=== PATIENT | male | born 2005 | race Caucasian/White ===

== ENCOUNTER 2024-08-04 12:28 | Emergency (ER) | payer OTHER, SELFPAY ==
[2024-08-04 13:26] VITALS: BP 131/70; PULSE 85; RESP 16; TEMP 36.9; O2SAT 98
--- NOTE | 2024-08-04 13:36 | ED.ANIMALBIT ---
HPI - Animal Bite General Chief Complaint: Animal Bite Stated Complaint: CAT BITE R INDEX FINGER Time Seen by Provider: 08/04/24 13:30 Source: patient and family Mode of arrival: ambulatory Limitations: no limitations History of Present Illness HPI narrative: Bk is a 18-year-old male patient presenting to the clinic today with complaints of a cat bite to his right index finger. He reports they were trying to clip the cat toenails when the cat bit his finger. This is a family cat. Has 2 puncture wounds to the right index finger. No redness or swelling noted at this time. No drainage. Did wash his hand after the bite Related Data Home Medications ?Medication ?Instructions ?Recorded ?Confirmed ?Last Taken ?Type atomoxetine 80 mg capsule mg PO 08/04/24 Unknown History escitalopram oxalate 10 mg tablet mg 08/04/24 Unknown History Allergies Allergy/AdvReac Type Severity Reaction Status Date / Time No Known Allergies Allergy Mild Verified 02/11/08 00:17 Review of Systems Review of Systems: Pertinent positives per HPI. Patient denies any fever, chills, rash, headache, visual changes, dizziness, cough, shortness of breath, chest pain, palpitations, nausea, vomiting, diarrhea, constipation, abdominal pain, or any urinary issues. PMFSH Comments At the time of my signature, I reviewed and agree with the nursing past medical, surgical, social, and family history. There is no relevant family history pertinent to the patient complaint. Exam Narrative: General: Well-developed, well nourished, in no apparent distress Head: Normocephalic, atraumatic. Cardio: Regular rate and rhythm, s1 and s2 normal, no murmur appreciated. Resp: Clear to auscultation bilaterally, no rhonchi, rales, wheezing or rubs. Integumentary: [place], warm, and dry, 2 puncture wounds to the right index finger-no redness, swelling, or drainage Course Course Emergency Course: Portions of this record may have been created with voice recognition software. Level of Care: Express Care Visit Vital Signs Vital signs: Vital Signs Temperature 36.9 C 08/04/24 13:26 Pulse Rate 85 08/04/24 13:26 Respiratory Rate 16 08/04/24 13:26 Blood Pressure 131/70 08/04/24 13:26 Pulse Oximetry 98 08/04/24 13:26 Temperature 36.9 C 08/04/24 13:26 Pulse Rate 85 08/04/24 13:26 Respiratory Rate 16 08/04/24 13:26 Blood Pressure 131/70 08/04/24 13:26 Pulse Oximetry 98 08/04/24 13:26 Vital signs reviewed MDM - Animal Bite MDM Narrative Medical decision making narrative: At the time of visit patient is resting comfortably on the exam table. Patient appears to be nontoxic. Plan: Patient has cat bite. Will treat prophylactic-Augmentin. Supportive measures were discussed with the patient and they voiced understanding discharge instructions and agrees to treatment plan. Return precautions reviewed Differential Diagnosis Differential diagnosis: Likely bite by animal and cat bite Discharge Plan Discharge Clinical Impression: Puncture wound Cat bite Qualifiers: Encounter type: initial encounter Qualified Code(s): W55.01XA - Bitten by cat, initial encounter Patient Disposition: Home, Self-Care Condition: Stable Instructions: Antibiotic Form, Animal Bite (ED), Puncture Wound (ED) Additional Instructions: Keep wound clean and dry Wash area daily with soap and water May apply triple antibiotic ointment to the wounds twice daily times 48 hours then leave open to air Take Augmentin as prescribed Watch for signs and symptoms of infection- redness, streaking, swelling, purulent discharge, or increase in pain. Follow up with your PCP in 2-3 days for wound check Patient Language: Portuguese Prescriptions: New amoxicillin-pot clavulanate 875-125 mg tablet 1 tablet PO Q12H 5 Days Qty: 10 0RF No Action escitalopram oxalate 10 mg tablet atomoxetine 80 mg capsule PO Follow-up/Referrals: Briseida Banegas MD [Primary Care Provider] - Time of Disposition: 13:37 Quality NIHSS Nursing Documentation ED NIHSS nursing documentation: reviewed/agree
== END 2024-08-04 13:43 | disposition home or self-care (01) ==
PROVIDERS: Emergency Provider Nurse Practitioner Family; PCP Pediatrics
DX: S61.230A Puncture wound without foreign body of right index finger without damage to nail, initial encounter (principal); W55.01XA Bitten by cat, initial encounter
CPT/HCPCS: 99203; G0463

== ENCOUNTER 2025-06-21 23:33 | Emergency (ER) | payer OTHER, SELFPAY ==
--- NOTE | ~2025-06-21 | XR_ITS ---
Examination: XR chest 1V portable Clinical History: flu A+ at home Comparison: None Technique: Portable AP Findings: Heart size normal. Lungs clear. No acute bony abnormality. IMPRESSION: 1. No acute cardiopulmonary findings given portable technique. Reviewed, dictated and finalized at location [employer]
--- OUTSIDE RECORDS SUMMARY | 2025-06-21 23:35 | XMS_ITS | Clinical Summary ---
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 Gender Identity Not on file Sexual Orientation Not on file Last Filed Vital Signs Vital Sign Reading Time Taken Comments Blood Pressure - - Pulse - - Temperature - - Respiratory Rate - - Oxygen Saturation - - Inhaled Oxygen Concentration - - Weight 34.2 kg (75 lb 8.1 oz) 04/12/2013 3:42 PM CDT Height 148.6 cm (4' 10.5) 04/12/2013 3:42 PM CD T Body Mass Index 15.51 04/12/2013 3:42 PM CDT Plan of Treatment Not on file Insurance [employer] Address: [facility] [id number] [place] [address] Care Teams Land Clearer Relationship Specialty Start Date End Date Briseida Banegas MD [address] [place] [address] PCP - General Pediatrics 12/24/21
[2025-06-21 23:37] VITALS: BP 121/107; PULSE 118; RESP 18; TEMP 37.2; O2SAT 100
[2025-06-22 03:16] LABS: Hematocrit 44.5 % (42.0-52.0); Hemoglobin 15.8 g/dL (14.0-18.0); Immature Granulocyte Percent A 0.2 % (0-0.5); Lymphocytes Absolute Auto 0.89 K/mm3 (0.9-3.2); Mean Corpuscular HGB Conc 35.5 g/dl (32-36); Mean Corpuscular Hemoglobin 30.7 pg (26-34); Mean Corpuscular Volume 86.6 fl (80-100); Nucleated Red Blood Cells Absolute Auto 0.000 K/mm3 (0.0-0.012); Nucleated Red Blood Cells Perc 0.0 % (0.0-0.2); Platelet Count Result 196 k/mm3 (150-375); Red Blood Count 5.14 M/mm3 (4.6-6.20); White Blood Count 11.6 K/mm3 (4.5-10.0)
--- NOTE | 2025-06-22 03:16 | ED_ITS ---
HPI - URI/Sore Throat General Chief Complaint: Upper Respiratory Infection Stated Complaint: flu Time Seen by Provider: 06/22/25 02:40 Source: patient and family (mother) Mode of arrival: ambulatory Limitations: no limitations History of Present Illness HPI Narrative: Patient presents with report of UTI symptoms. Tested positive for Influenza a on a home test. 100.9F temp at home. Has been using ibuprofen and Tylenol at home, last dose at 6:30. Takes Straterra and Lexapro. Has had cough productive of phlegm with fevers. Started having shortness of breath and wheeze. no sore throat. Hard to sleep. Sister also has flu. Smokes marijuana but denies cigarettes or vaping. Had pediatric asthma but outgrew it, no other underlying respiratory issues. PCP Sue Contreras Related Data Home Medications ?Medication ?Instructions ?Recorded ?Confirmed ?Last Taken ?Type atomoxetine 80 mg capsule mg PO 08/04/24 Unknown Hist ory escitalopram oxalate 10 mg tablet mg 08/04/24 Unknown History Allergies Allergy/AdvReac Type Severity Reaction Status Date / Time No Known Allergies Allergy Mild Verified 06/21/25 23:39 [facility] Past Medical History Medical History History of asthma pediatric; outgrew Family History Family History Sibling Flu May 2025 Social History Social History Smoking status: Never smoker Additional smoking assessment comments: denies cigarettes or vaping Substance use type: marijuana Other substance usage details: smokes Exam 2 Narrative: GENERAL: Well-appearing, well-nourished, and in no acute distress. HEAD: Normocephalic, atraumatic. EYES: Non injected, non icteric ENT: Nares clear, no epistaxis. Gross auditory acuity intact. NECK: Supple. No meningismus. CHEST: Speaking in full sentences. No respiratory distress. Lungs with bilateral wheezes. No accessory muscle usage. HEART: Tachycardic rate and rhythm. . ABDOMEN: Soft, nondistended. No rigidity or guarding. Not peritoneal EXTREMITIES: Normal range of motion. SKIN: Warm, dry, no rash. NEURO: No focal deficits. Alert and oriented. Answering questions. Following commands. Normal speech without aphasia or dysarthria. Ambulates with steady gait PSYCH: Normal mood and affect. Course Vital Signs Vital signs: Vital Signs Temperature 98.9 F 06/21/25 23:37 Pulse Rate 118 H 06/21/25 23:37 Respiratory Rate 18 06/21/25 23:37 Blood Pressure 121/107 H 06/21/25 23:37 Pulse Oximetry 100 06/21/25 23:37 Oxygen Delivery Room Air 06/21/25 23:37 Temperature 98.9 F 06/21/25 23:37 Pulse Rate 116 H 06/22/25 03:43 Respiratory Rate 20 06/22/25 03:43 Blood Pressure 130/74 06/22/25 03:31 Pulse Oximetry 96 06/22/25 03:31 Oxygen Delivery Room Air 06/21/25 23:37 [facility] Narrative Medical decision making narrative: Patient presents with report of tesing positive for influenza a at home today. has had fever, cough. Started to feel short of breath with wheezes which made it difficult to sleep so presents to the ED. Had pediatric asthma that he outgrew. Otherwise no underlying respiratory issues. Smokes marijuana but no cigarettes/does not vape. In the emergency department he is afebrile with vital signs notable for hypertension particularly with the elevated diastolic blood pressure. He is also tachycardic at 118. Wheezes on exam. Nebulizer albuterol treatment ordered and will discharge with Rx for albuterol inhaler. Mild hyponatremia, no prior for comparison. Mild leukocytosis. HR and BP had normalized on repeat although HR elevated again, suspect possible contribution of albuterol. Discussed risks/benefits of Tamiflu. Shared decision making. Patient and mother elect to defer taking; no rx to be given. Advised PCP follow up and given return precautions. Discussed rest and supportive care. Differential Diagnosis Differential Diagnosis: acute viral syndrome/flu a; pneumonia Lab Data [facility] Lab Attestation statement: I personally reviewed the patient's lab results. 06/22/25 03:10 06/22/25 03:10 Labs: Lab Results 06/22/25 Range/Units 03:10 WBC 11.6 H (4.5-10.0) K/mm3 RBC 5.14 (4.6-6.20) M/mm3 Hgb 15.8 (14.0-18.0) g/dL Hct 44.5 (42.0-52.0) % MCV 86.6 (80-100) fl MCH 30.7 (26-34) pg MCHC 35.5 (32-36) g/dl RDW 11.9 (11.5-14.5) % Plt Count 196 (150-375) k/mm3 MPV 9.4 (7.4-10.4) fl Immature Gran % (Auto) 0.2 (0-0.5) % Neut % (Auto) 78.5 H (45.5-73.1) % Lymph % (Auto) 7.7 L (18.3-44.2) % [place] % (Auto) 12.0 H (2.6-8.5) % Eos % (Auto) 1.0 (0-4.4) % Baso % (Auto) 0.6 (0.2-1.2) % Lymph # (Auto) 0.89 L (0.9-3.2) K/mm3 [place] # (Auto) 1.4 H (0.1-0.6) K/mm3 Eos # (Auto) 0.1 (0-0.3) K/mm3 Baso # (Auto) 0.1 (0.0-0.1) K/mm3 Abs Immat Gran (auto) 0.02 (0.00-0.031) K/mm3 Absolute Neuts (auto) 9.1 H (1.3-6.7) K/mm3 Absolute Nucleated RBC 0.000 (0.0-0.012) K/mm3 Nucleated RBC % 0.0 (0.0-0.2) % Sodium 135 L (137-145) mmol/L Potassium 4.1 (3.4-5.0) mmol/L Chloride 103 (98-107) mmol/L Carbon Dioxide 23 (22-30) mmol/L Anion Gap 9 (4-12) mmol/L BUN 16 (9-20) mg/dL Creatinine 0.85 (0.7-1.3) mg/dL Estim Creat Clear Calc 144 ml/min Estimated GFR > 60 (59 - ) Glucose 109 (65-110) mg/dL Calcium 9.7 (8.4-10.2) mg/dL Imaging Data Attestation: I personally reviewed and interpreted this imaging study as follows: My impression: Borderline hyperinflated lungs Radiologist's impression: ITS Impressions Chest X-Ray 06/22/25 06:22 IMPRESSION: 1. No acute cardiopulmonary findings given portable technique. Discharge Plan Discharge Clinical Impression: Influenza A, Hyponatremia, Wheezes, Leukocytosis Patient Disposition: Home Condition: Stable Instructions: Antibiotic Form, Hyponatremia (ED), Influenza (DC), Leukocytosis (ED), Wheezing (ED) Additional Instructions: Acetaminophen/Tylenol (maximum 4000 mg per day) is safe to take with NSAIDs (ibuprofen/Motrin) for pain relief/fever. The Tessalon Perles may help the cough and you are being prescribed an albuterol inhaler for the wheezes you are experiencing. Follow-up with your primary care physician. Return to the emergency department with any new worsening unmanaged symptoms. Rest and maintain your hydration. Patient Language: [place] Prescriptions: New benzonatate 100 mg capsule 100 mg PO BID PRN (Reason: cough) Qty: 20 0RF albuterol sulfate 90 mcg/actuation HFA aerosol inhaler 1 inh inhalation QID PRN (Reason: shortness of breath or wheezing) Qty: 6.7 0RF No Action escitalopram oxalate 10 mg tablet atomoxetine 80 mg capsule PO amoxicillin-pot clavulanate 875-125 mg tablet 1 tablet PO Q12H 5 Days Qty: 10 0RF Follow-up/Referrals: Briseida Banegas MD [Primary Care Provider, Pediatrics] Stand Alone Forms: Work/School Release IP Time of Disposition: 04:30
[2025-06-22 03:26] LABS: Anion Gap 9 mmol/L (4-12); Blood Urea Nitrogen 16 mg/dL (9-20); Calcium 9.7 mg/dL (8.4-10.2); Carbon Dioxide 23 mmol/L (22-30); Chloride 103 mmol/L (98-107); Estimated CRCL calculation 144 ml/min; Estimated Glomerular Filt Rate > 60; Glucose 109 mg/dL (65-110); Potassium 4.1 mmol/L (3.4-5.0); Sodium 135 mmol/L (137-145)
[2025-06-22 03:31] VITALS: BP 130/74; PULSE 78; RESP 21; O2SAT 96
[2025-06-22] MEDS: ALBUTEROL SULFATE NEB 2.5 MG/3 ML INH INHALATION (03:34)
[2025-06-22 03:37] VITALS: PULSE 126; RESP 20
[2025-06-22 03:43] VITALS: PULSE 116; RESP 20
[2025-06-22] MEDS: BENZONATATE 100 MG CAPSULE PO (03:44)
== END 2025-06-22 04:48 | disposition home or self-care (01) ==
PROVIDERS: Emergency Provider Student in an Organized Health Care Education/Training Program; PCP Pediatrics
DX: J10.1 Influenza due to other identified influenza virus with other respiratory manifestations (principal); R06.2 Wheezing; E87.1 Hypo-osmolality and hyponatremia; D72.829 Elevated white blood cell count, unspecified
CPT/HCPCS: 36415; 71045; 80048; 85025; 94640; 99283; A9270